=== PATIENT | female | born 1970 | race Caucasian/White ===

== ENCOUNTER 2023-08-13 06:09 | Day surgery (SDC) | payer BC, SELFPAY ==
[2023-08-13 06:25] VITALS: BP 139/96; PULSE 88; RESP 16; TEMP 36.3; O2SAT 96; BMI 35.8
[2023-08-13] MEDS: SODIUM CHLORIDE 0.9 % (FLUSH) 10 ML SYRINGE IVF (06:30)
[2023-08-13] MEDS: LACTATED RINGERS 1000 ML 1,000 ML 100 ML IV (06:30)
[2023-08-13 06:45] LABS: Hemoglobin* 14.2 gm/dL (12.0-16.0)
[2023-08-13 06:48] LABS: Ur HCG Qualitative* Negative (Negative)
--- NOTE | 2023-08-13 07:17 | W.PM.H&PU_ITS ---
History & Physical Update History & Physical Update H&P Reviewed and patient assessed: No changes noted H&P Updates: Reviewed plan for hysteroscopy, D&C and IUD insertion. We discussed risks of surgery including postprocedural discomfort/pain, irregular spotting post-IUD, malposition/IUD expulsion, infection and perforation. We discussed postoperative restrictions and expectations - pelvic rest x2 weeks and no lifting restrictions. Pre-op labs WNL. All questions answered. Written consent re- initialed.
[2023-08-13] MEDS: BUPIVACAINE 0.5% 30 ML INJECTION (07:55)
[2023-08-13 08:27] VITALS: BP 133/87; PULSE 85; RESP 16; TEMP 36.2; O2SAT 93
--- NOTE | 2023-08-13 08:29 | W.ANESCHARGE ---
Anesthesia Charges Start Date/Time Anesthesia Start Date: 08/13/23 Anesthesia Start Time: 07:39 Stop Date/Time Anesthesia Stop Date: 08/13/23 Anesthesia Stop Time: 08:30
[2023-08-13 08:30] VITALS: BP 140/84; PULSE 84; RESP 16; O2SAT 95
--- NOTE | 2023-08-13 08:36 | W.PM.GYNPROC ---
Procedure Note Time Seen by Provider: 08:36 Date of procedure: 08/13/23 Pre-op diagnosis: Abnormal Uterine Bleeding Post-op diagnosis: same Procedure: Hysteroscopy, dilation and curettage, IUD insertion Anesthesia: MAC and local Complications: None Surgeon: Amrit Marti MD Estimated blood loss (mL): 5 IV fluids (mL): 700 Urine Output (mL): 50 Pathology: specimen obtained, sent to pathology Condition: stable Disposition: same day Findings: Proliferative appearing endometrium Polypoid tissue at the right uterine fundus, obscuring visualization of right tubal ostia Unremarkable left tubal ostia Procedure Description: Procedure in detail: Patient was taken to the operating room with IV running. She was positioned in dorsal lithotomy position with her legs fully supported in Yellofin stirrups. Monitored anesthesia care was administered. She was prepped and draped in the usual sterile fashion. Exam under anesthesia was performed for the above-noted findings. In/out catheterization performed, return of 50mL urine. Speculum was inserted. Cervix visualized and grasped along the anterior lip with a single-tooth tenaculum. Paracervical block performed in the usual fashion with a 0.5% Marcaine, 10mLtotal. Cervix was serially dilated to accommodate the TRUCLEAR hysteroscope. This was assembled with saline inflow and outflow in place. The line was flushed of bubbles. The hysteroscope was advanced through the cervix into the endometrial cavity for the above noted findings. The tissue morcellator was then inserted through the operating channel. Window lock was performed. Under direct visualization, the right polypoid-like tissue was first resected in its entirety then endometrial cavity was circumferentially curetted with the tissue morcellator. The hysteroscope and morcellator were then removed from the uterus. Uterus was sounded to 10 cm. Mirena IUD was loaded, advanced to uterine fundus, deployed in usual fashion. Diagnostic hysteroscopy was again performed, confirming proper intrauterine device position. Hysteroscope was removed, making care to avoid altering the position of the IUD. Strings trimmed to 3cm. Tenaculum was removed from the anterior lip of cervix. Hemostasis was noted. Patient tolerated procedure well. She was taken to recovery area in stable condition. Surgical debriefing completed. EBL 5 mL , urine output 50mL, IVF 700mL, Fluid deficit 80mL. Specimen is endometrial curettings, sent for pathologic evaluation.
[2023-08-13 08:45] VITALS: BP 148/74; PULSE 88; RESP 16; O2SAT 95
[2023-08-13 09:00] VITALS: BP 152/93; PULSE 86; RESP 16; O2SAT 95
== END 2023-08-13 09:15 | disposition home or self-care (01) ==
PROVIDERS: PCP Physician Assistant Medical; Visit Provider Obstetrics & Gynecology
PROC: 0UDB8ZZ Extraction of Endometrium, Via Natural or Artificial Opening Endoscopic (ICD-10-PCS; CPT 58558; principal; 2023-08-13 07:15)
DX: N93.8 Other specified abnormal uterine and vaginal bleeding (principal); Z30.430 Encounter for insertion of intrauterine contraceptive device
CPT/HCPCS: 58558; 58300; 00952; 36415; 81025; 85018; 88305; J0665; J1100; J1885; J2250; J2405; J2704; J3010; J7120; J7298

== ENCOUNTER 2023-09-17 20:56 | Emergency (ER) | payer BC, SELFPAY ==
[2023-09-17 21:08] VITALS: BP 138/71; PULSE 69; RESP 24; TEMP 36.2; O2SAT 100
[2023-09-17] MEDS: ONDANSETRON 2 MG/ML inj 4 MG IVP (21:31)
[2023-09-17] MEDS: KETOROLAC 30 MG/ML inj 15 MG IVP (21:32)
--- NOTE | 2023-09-17 22:20 | CT_ITS ---
Patient: AIDEE CEVALLOS Facility:?[facility] Patient ID:?[id number] Site Patient ID:?[id number]. Site :?[id number] Study:?CT-Abdomen/Pelvis WO-09/17/2023 10:32:48 PM Ordering Physician:ADAL Final Report: INDICATION: Flank pain. TECHNIQUE: CT of the abdomen and pelvis without IV contrast. Coronal and sagittal reconstructions. COMPARISON: None. FINDINGS: The liver is enlarged measuring 21 cm in length. Diffuse hepatic steatosis, with focal fatty infiltration adjacent to the falciform ligament. The gallbladder is distended and contains multiple stones. No definite evidence of gallbladder inflammation. No biliary dilation. The unenhanced spleen, pancreas, and adrenal glands are normal in appearance. No hydronephrosis or ureteral dilation. No obstructing urinary calculi identified. Decompressed urinary bladder. IUD in the uterus. There is a 4.8 cm subserosal fibroid arising from the anterior uterus. Lobulated uterine contour suggesting presence of additional fibroids. There is a 3.6 cm cystic lesion in the left adnexa (series 2, image 111). Small nonspecific calcific density along the right lower vaginal wall. No small bowel dilation. Moderate amount of stool throughout the colon. A possible diminutive appendix is identified which is negative. No intraperitoneal free air or fluid. No lymphadenopathy. The lung bases are clear. The bones are unremarkable. IMPRESSION: 1. Distended gallbladder containing multiple stones. No definite CT evidence of gallbladder inflammation. This could be further evaluated with right upper quadrant ultrasound if clinically indicated. 2. Hepatomegaly with diffuse hepatic steatosis. 3. Fibroid uterus and left adnexal cyst. Please note that all CT scans at this facility use dose modulation, iterative reconstruction, and/or weight-based dosing when appropriate to reduce radiation dose to as low as reasonably achievable. Dictated by Lorie Snyder MD @ 09/17/2023 11:02:16 PM Signed by:?Lorie Snyder MD @09/17/2023 11:02:16 PM (Electronic Signature)
[2023-09-17 22:26] LABS: Appearance Urine Clear (Clear); Bilirubin Urine Negative (Negative); Blood Urine Trace-intact (Negative); Color Urine Yellow (Yellow); Glucose Urine Negative (Negative); Ketones Urine 1+ (Negative); Leukocyte Esterase Urine Negative (Negative); Nitrite Urine Negative (Negative); Protein Urine Negative (Negative); Specific Gravity Urine 1.025 (1.000-1.030); Urobilinogen Urine 0.2 (0.2-1.0)
[2023-09-17 22:30] VITALS: TEMP 36.6
[2023-09-17 22:36] LABS: Bacteria Urine Few; RBC Urine 0-2 (0-2); Squamous Epithelial Cell Urine Few (None-Few); WBC Urine 0-2 (0-5)
--- NOTE | 2023-09-17 23:36 | ED.GENADULT ---
HPI - General Adult General Chief complaint: Back Injury/Pain Stated complaint: Sent by triage nurse for poss kidney stones Time Seen by Provider: 09/17/23 22:06 History of Present Illness HPI narrative: This 53-year-old female comes in with back pain across her mid to lower back that sometimes radiates that around into her abdomen in the upper abdomen primarily. These symptoms started yesterday and went away for awhile and then has come back on and off. She has had some nausea and vomiting also. She was sent here by a nurse who thought she might have a kidney stone. The patient states she does not have any history of kidney stone personally or family history also. She arrives with significant pain and an IV was established prior to my seeing her. I did order Toradol and Zofran and this brought great relief to her symptoms. Related Data Home Medications Medication Instructions Recorded Confirmed aspirin 81 mg tablet,delayed 81 mg PO DAILY 06/14/23 09/02/23 release clonidine HCl 0.1 mg tablet 0.1 mg PO BID 06/14/23 09/02/23 fluoxetine 40 mg capsule 40 mg PO DAILY 06/14/23 09/02/23 gabapentin 300 mg capsule 300 mg PO DAILY 06/14/23 09/02/23 zolpidem 10 mg tablet 10 mg PO QPM PRN 07/19/23 09/02/23 albuterol sulfate 90 mcg/actuation 1 inh inhalation Q6H 08/09/23 09/02/23 aerosol inhaler omeprazole 20 mg capsule,delayed 20 mg PO DAILY 08/09/23 09/02/23 release Allergies Allergy/AdvReac Type Severity Reaction Status Date / Time No Known Drug Allergies Allergy Verified 09/02/23 14:28 Review of Systems Status of ROS: Reports: 10 or more systems reviewed and unremarkable except as noted in History and below Narrative: Constitutional: No fevers, no weight gain or loss. Eyes: No discharge. No vision changes. HENT: No congestion, no sore throat, no ear pain. Cardiovascular: No chest pain, no palpitations. Respiratory: No shortness of breath, no wheezes, no cough. Gastrointestinal: No diarrhea. Abdominal and flank pain as described above. Genitourinary: No dysuria, no hematuria. Musculoskeletal: Normal range of motion. Skin: No rashes, no pruritis. Neurological: No dizziness, weakness, sensory change, speech change. Endo/Heme/Allergies: No bruising or bleeding. No polydipsia. Pysch: no suicidality, no anxiety, no insomnia. All other systems reviewed and are negative. [facility] Medical History (Updated 09/17/23 @ 23:47 by Frank Muñiz MD) Adjustment disorder with anxiety ?F43.22 - Adjustment disorder with anxiety (ICD-10) Genital herpes ?A60.00 - Herpesviral infection of urogenital system, unspecified (ICD-10) Dysthymic disorder ?F34.1 - Dysthymic disorder (ICD-10) Surgical History History of endometrial ablation ?Z98.890 - Other specified postprocedural states (ICD-10) Social History Smoking Status: Never smoker Do you use any of these nicotine containing products: None How often do you have a drink containing alcohol: monthly or less Alcohol type: hard liquor How many standard drinks containing alcohol do you have on a typical day: 1 or 2 How often do you have six or more drinks on one occasion: Never AUDIT-C Alcohol total score: 1 Non-prescribed substance use: denies use Caffeine: Yes Are you using contraception or practicing any form of control: No Exam Narrative: Exam Narrative: Constitutional: Well-developed, well-nourished, no acute distress. HEENT: Normocephalic, atraumatic. Neck: Normal range of motion. Nontender. Supple. Heart: Regular. No murmurs. Normal rate. Intact distal pulses. Lungs: Clear to auscultation. No chest discomfort. No wheezes, rhonchi, or rales. Abdomen: Normal bowel sounds. Tenderness in the right upper quadrant. No rebound tenderness. Genitalia: Deferred. Back: No midline tenderness. Normal range of motion. Extremities: Normal range of motion. No injury. Skin: Intact. No rash. Warm. No erythema or pallor. Neurologic: No altered sensation. No weakness. Alert and oriented. Psychiatric: No suicidality. No anxiety or depression. No insomnia. Nursing notes and vitals signs are reviewed. Const: Vital Signs, click to edit/add: Vital Signs - 24 hr 09/17/23 21:08 09/17/23 22:30 Temperature 97.2 F L 97.9 F Pulse Rate [Pulse Oximeter] 69 Respiratory Rate 24 Blood Pressure [Le ft Upper Arm] 138/71 Pulse Oximetry 100 Oxygen Delivery Me thod Room Air Course Vital Signs Vital signs: Initial Vital Signs Temperature 97.2 F L 09/17/23 21:08 Temperature Source Temporal Artery Scan 09/17/23 21:08 Pulse Rate 69 09/17/23 21:08 Respiratory Rate 24 09/17/23 21:08 Blood Pressure 138/71 09/17/23 21:08 Blood Pressure Mean 93 09/17/23 21:08 Blood Pressure Position Sitting 09/17/23 21:08 Pulse Oximetry 100 09/17/23 21:08 Oxygen Delivery Method Room Air 09/17/23 21:08 Vital Signs Temperature 97.2 F L 09/17/23 21:08 Pulse Rate 69 09/17/23 21:08 Respiratory Rate 24 09/17/23 21:08 Blood Pressure 138/71 09/17/23 21:08 Pulse Oximetry 100 09/17/23 21:08 Oxygen Delivery Method Room Air 09/17/23 21:08 Temperature 97.9 F 09/17/23 22:30 Pulse Rate 69 09/17/23 21:08 Respiratory Rate 24 09/17/23 21:08 Blood Pressure 138/71 09/17/23 21:08 Pulse Oximetry 100 09/17/23 21:08 Oxygen Delivery Method Room Air 09/17/23 21:08 Medications Administered Medications: Discontinued Medications Generic Name Dose Route Start Last Admin Trade Name Miguelq PRN Reason Stop Dose Admin Ketorolac Tromethamine 15 mg 09/17/23 21:28 09/17/23 21:32 Ketorolac 30 Mg/Ml Inj IVP 09/17/23 21:29 15 mg ONCE ONE Administration Ondansetron HCl 4 mg 09/17/23 21:28 09/17/23 21:31 Ondansetron 2 Mg/Ml Inj IVP 09/17/23 21:29 4 mg ONCE ONE Administration Medical Decision Making MDM Narrative Medical decision making narrative: This patient comes in with abdominal and back pain as described above. An IV was established where she received Toradol 15 mg and Zofran 4 mg. This brought great relief to her symptoms. A CT scan of the abdomen and pelvis is obtained which shows no sign of renal stone but there are stones distending her gallbladder. This most likely is explaining her intermittent pain. She is not showing any sign of obstruction or infection. She is okay to be discharged home. I did provide prescriptions for Toradol and [place] through the [facility]. I advised her to follow-up with surgery Clinic for cholecystectomy. Lab Data Labs: Lab Results 09/17/23 Range/Units 22:20 Urine Color Yellow (Yellow) Urine Appearance Clear (Clear) Urine pH 6.0 (5.0-8.5) Ur Specific Ramona 1.025 (1.000-1.030) Urine Protein Negative (Negative) Urine Glucose (UA) Negative (Negative) Urine Ketones 1+ A (Negative) Urine Blood Trace-intact A (Negative) Urine Nitrite Negative (Negative) Urine Bilirubin Negative (Negative) Urine Urobilinogen 0.2 (0.2-1.0) Ur Leukocyte Esterase Negative (Negative) Urine RBC 0-2 (0-2) Urine WBC 0-2 (0-5) Ur Squamous Epith Cells Few (None-Few) Urine Bacteria Few A (None) Imaging Data CT scan - abdomen: Radiologist's impression: 1. Distended gallbladder containing multiple stones. No definite CT evidence of gallbladder inflammation. This could be further evaluated with right upper quadrant ultrasound if clinically indicated. 2. Hepatomegaly with diffuse hepatic steatosis. 3. Fibroid uterus and left adnexal cyst. Discharge Plan Discharge Clinical Impression: Cholelithiasis Patient Disposition: Home, Self-Care Condition: Improved Additional Instructions: Take medication as needed and directed. Return if symptoms are worsening or pain is not adequately controlled. Follow up with surgery Clinic for ongoing management of gallstones. Call [phone] for appointment. Prescriptions: No Action clonidine HCl 0.1 mg tablet 0.1 mg PO BID gabapentin 300 mg capsule 300 mg PO DAILY fluoxetine 40 mg capsule 40 mg PO DAILY aspirin 81 mg tablet,delayed release (DR/EC) 81 mg PO DAILY zolpidem 10 mg tablet 10 mg PO QPM PRN omeprazole 20 mg capsule,delayed release(DR/EC) 20 mg PO DAILY albuterol sulfate 90 mcg/actuation HFA aerosol inhaler 1 inh inhalation Q6H Follow Up/Referrals: Heavenly Avery, SHAYNA [Primary Care Provider] - Stand Alone Forms: [employer] Info Instructions
[2023-09-18] VITALS: BP 138/71; PULSE 69; RESP 24; TEMP 36.6
== END 2023-09-18 | disposition home or self-care (01) ==
PROVIDERS: Emergency Provider Emergency Medicine Emergency Medical Services; PCP Physician Assistant Medical
DX: K80.20 Calculus of gallbladder without cholecystitis without obstruction (principal)
CPT/HCPCS: 74176; 81001; 87086; 96374; 96375; 99284; J1885; J2405

== ENCOUNTER 2023-09-19 17:27 | Outpatient (CLI) | payer BC, SELFPAY ==
--- NOTE | 2023-09-19 18:00 | US_ITS ---
Patient: AIDEE CEVALLOS Facility:?[facility] Patient ID:?[id number] Site Patient ID:?[id number] Site :?[id number] Study:?US-Abdomen RUQ-09/19/2023 8:59:20 AM Ordering Physician:LUANA MON Final Report: INDICATION: Abnormal gallbladder on CT TECHNIQUE: Ultrasound abdomen limited. Sonographic images of the right upper quadrant were obtained using tan-scale and color Doppler images. COMPARISON: 09/17/[address] FINDINGS: Liver: Diffusely echogenic consistent with fatty infiltration. 22.2 cm focal fatty sparing near the gallbladder fossa. No masses. No intrahepatic biliary dilatation. Normal flow direction in the portal vein. Gallbladder: Cholelithiasis. Wall thickness upper limits of normal. [employer] indicates tenderness over the gallbladder. Common bile duct: 6 mm. Pancreas: Normal where visible. Right kidney: Normal in size. Normal echotexture and cortex. No suspicious masses, stones, or hydronephrosis. Vasculature: Proximal abdominal aorta and IVC are normal. IMPRESSION: 1. Cholelithiasis and tenderness over the gallbladder. Correlate for cholecystitis. 2. Hepatic steatosis. Dictated by Kash Willis MD @ 09/24/2023 9:16:22 AM Signed by:?Kash Willis MD @09/24/2023 9:16:22 AM (Electronic Signature)
== END 2023-09-19 17:28 | disposition home or self-care (01) ==
LOC: US 17:31
PROVIDERS: PCP Physician Assistant Medical; Visit Provider Surgery
DX: K80.20 Calculus of gallbladder without cholecystitis without obstruction (principal); K76.0 Fatty (change of) liver, not elsewhere classified
CPT/HCPCS: 76705; 80076; 83690

== ENCOUNTER 2023-09-23 10:04 | Day surgery (SDC) | payer BC, SELFPAY ==
[2023-09-23] VITALS (16 sets, daily range): BP systolic 126–145; BP diastolic 69–78; PULSE 78–99; RESP 14–18; TEMP 36.4–37.2; O2SAT 94–100; BMI 34.3
--- OUTSIDE RECORDS SUMMARY | 2023-09-23 10:09 | XMS_ITS | Clinical Summary ---
Author Name Unknown Organization [employer] [facility] Address [place], [place] [address] Care Team Providers Care Pcb Design Engineer Name Role Phone Heavenly Avery Primary Care Provider Allergies No known active allergies Medications Medication Sig Dispensed Refills Start Date End Date Status cholecalciferol (VITAMIN D-3) 2,000 unit capsule Take 1 capsule by mouth once daily. 0 04/05/2015 Active cyanocobalamin (VITAMIN B-12) 1,000 mcg tablet Take 1 tablet by mouth once daily. 0 04/05/2015 Active vitamin e 1,000 unit cap Take by mouth once daily. 0 04/05/2015 Active Omeprazole 20 mg tabletIndications :Gastric reflux Take 1 tablet by mouth 2 times daily. Twice daily before a meal 180 tablet 08/23/2017 Active famciclovir (FAMVIR) 250 mg tabletIndications :Genital herpes simplex, unspecified site Take 1 Tablet (250 mg) by mouth 2 times daily. X 5 days for herpes out break. 30 Tablet 1 08/29/2020 Active mupirocin (BACTROBAN OINTMENT) ointmentIndicatio ns:Skin irritation APPLY TOPICALLY TO THE AFFECTED AREA THREE TIMES DAILY FOR 5 DAYS 22 g 12/22/2020 Active albuterol HFA (ProAir HFA) 90 mcg/actuation inhalerIndication s:Bronchitis with bronchospasm Inhale 1-2 Puffs by mouth every 6 hours if needed for Shortness of Breath 1st choice. 1 Each 03/15/2022 Active aspirin (ECOTRIN) 81 mg enteric coated tabletIndications :Coronary artery disease, unspecified vessel or lesion type, unspecified whether angina present, unspecified whether [place] or transplanted heart TAKE 1 TABLET(81 MG) BY MOUTH EVERY DAY WITH A MEAL 90 Tablet 3 08/10/2022 Active FLUoxetine (PROZAC) 40 mg capsuleIndication s:Dysthymic disorder Take 1 Capsule (40 mg) by mouth every morning. 90 Capsule 3 12/17/2022 Active cloNIDine HCL (CATAPRES) 0.1 mg tabletIndications :Vasomotor symptoms due to menopause Take 1 Tablet (0.1 mg) by mouth two times daily. 180 Tablet 1 06/26/2023 Active zolpidem (AMBIEN) 10 mg tabletIndications :Insomnia, idiopathic Take 1 Tablet (10 mg) by mouth at bedtime if needed for Sleep. 30 Tablet 1 08/06/2023 Active clonazePAM (KLONOPIN) 0.5 mg tabletIndications :Insomnia, idiopathic Take 1-2 Tablets (0.5-1 mg) by mouth at bedtime. 30 Tablet 1 09/06/2023 Active gabapentin (NEURONTIN) 100 mg capsuleIndication s:Insomnia, idiopathic Take 300 mg at bedtime x 3 days, then 200 mg at bedtime x 3 days, then 100 mg at bedtime x 3 days. 18 Capsule 09/13/2023 Active HYDROcodone-aceta minophen (5-325 mg/tablet)Indicat ions:Cholecystiti s, acute Take 1 Tablet by mouth 3 times daily if needed for Pain. Max acetaminophen dose: 4000 mg in 24 hrs. 10 Tablet 09/20/2023 Active gabapentin (NEURONTIN) 100 mg capsuleIndication s:Insomnia, idiopathic TAKE 1 CAPSULE(100 MG) BY MOUTH AT BEDTIME IN ADDITION TO 300 MG CAPSULE FOR TOTAL OF 400 MG AT BEDTIME 90 Capsule 06/07/2023 4 Discontinu ed(*Med complete/R egimen complete/L evel of care change) gabapentin (NEURONTIN) 300 mg capsuleIndication s:Insomnia, idiopathic TAKE 1 CAPSULE(300 MG) BY MOUTH AT BEDTIME 90 Capsule 08/12/2023 4 Discontinu ed(*Med complete/R egimen complete/L evel of care change) Active Problems Problem Noted Date Diagnosed Date Trigger finger, right middle finger 06/06/2021 Carpal tunnel syndrome, bilateral 06/06/2021 Adjustment disorder with mixed anxiety and depre ssed mood 07/05/2016 Genital herpes, unspecified 07/17/2011 Last Assessment & Plan: Diagnosis since age 8 Uses anti viral as needed doing well at this time. Dysthymic disorder 06/27/2010 Encounters Date Type Department Care Team Description 09/20/2023 8:30 AM CDT Preop Visit [facility] [address] [place] [address] Heavenly Avery PA Preoperative Exam (Gallbladder) 09/20/2023 Travel 09/19/2023 Telephone [facility] [address] [place] [address] Heavenly Avery PA Appointment Request 09/17/2023 Nurse Triage [facility] [address] [place] [address] Heavenly Avery PA Flank Pain 09/12/[address] [address] Heavenly Avery PA Medication Management (gabapentin) 09/09/[address] [address] Heavenly Avery PA Refill Request (Gabapentin) 09/06/2023 Telephone [facility] [address] [place] [address] Heavenly Avery PA Refill Request (Klonopin ) 08/13/2023 Orders Only [facility] Scanner 1 scan: (1-Ord) [facility], HYSTEROSCOPY, DILATION AND CURETTAGE, IUD INSERTION, 08/13/2023 08/13/2023 Lab Requisition [facility] [phone] Shaneka Marti MD 08/11/2023 Refill [facility] [address] [place] [address] Heavenly Avery PA Refill Request (Gabapentin) 08/06/2023 9:30 AM CDT Preop Visit [facility] [address] [place] [address] Heavenly Avery PA Preoperative Exam (Uterus ) 08/06/2023 Travel 06/25/2023 Refill [facility] [address] [place] [address] Heavenly Avery PA Refill Request (Clonidine Hcl) from Last 3 Months Immunizations Name Administration Dates Next Due COVID-19 vaccine (SongtradrBioNTSomaLogic 30mcg/0.3mL) P F, MDV 09/21/2020,08/31/2020 Td (Age >=7 Years) 12/17/2022 Tdap 02/11/2012 Family History Medical History Relation Name Comments Good Health Brother Heart Disease Father Cancer Maternal Grandmother Pancrea tic Hyperlipidemia Mother Good Health Sister Cancer-breast No Family History Cancer-ovarian No Family History Relation Name Status Comments Brother Alive Father Maternal Grandmother Mother Alive Sister Alive Social History Tobacco Use Types Packs/Day Years Used Date Smoking Tobacco: Never Smokeless Tobacco: Never Tobacco Cessation:Counseling Given: Yes Alcohol Use Standard Drinks/Week Comments No 0 (1 standard drink = 0.6 oz pur e alcohol) PHQ-2 Answer Date Recorded PHQ-2 TOTAL SCORE 0 11/15/2022 Social Connections Answer Date Recorded Frequency of Communication with Friends and Fami ly 0 12/17/2022 Financial Resource Strain Answer Date R ecorded Difficulty of Paying Living Expenses 3 12/17/2022 Difficulty of Paying Living Expenses Not on file 12/17/2022 Food Insecurity Answer Date Recorded Worried About Running Out of Food in the Last Ye ar 1 12/17/2022 Transportation Needs Answer Date Record ed Lack of Transportation (Medical) 1 12/17/2022 Housing Stability Answer Date Recorded Unable to Pay for Housing in the Last Year 1 12/17/2022 Sex and Gender Information Value Date Recorded Sex Assigned at Not on file Gender Identity Not on file Sexual Orientation Not on file Obstetrics History Para Term AB IAB SAB Ectopic Multiple Livin g Live Births 1 Date Outcome GA Total Labor Labor/2nd/3rd Weight Sex Delivery Anes PTL Codi A1 A5 Name Cl in Last Filed Vital Signs Vital Sign Reading Time Taken Comments Blood Pressure 107/69 09/20/2023 8:34 AM CDT Pulse 84 09/20/2023 8:34 AM CDT Temperature 36.3 ??C (97.4 ??F) 12/31/2022 1:11 PM CD T Respiratory Rate 16 02/23/2022 12:46 PM CDT Oxygen Saturation 99% 09/20/2023 8:34 AM CDT Inhaled Oxygen Concentration - - Weight 88 kg (194 lb) 09/20/2023 8:34 AM CDT Height 159.7 cm (5' 2.87) 08/06/2023 9:43 AM CD T Body Mass Index 34.5 08/06/2023 9:43 AM CDT Plan of Treatment Health Maintenance Due Date Last Done Comments HIV for age 15-65 1983 Zoster (shingles) series for age 50+ (1 of 2) 2018 COVID-19 vaccine series (2022- season) 2023 09/21/2020, 08/31/2020 Depression screening for age 12+ 11/16/2023 11/15/2022, 06/19/2021, 03/08/2021, Additional history exists Mammogram for age 45-75 12/18/2023 12/18/19 23, 12/05/2021, 11/15/2020, Additional history exists Fecal testing non-DNA (FIT,FOBT,iFOBT) for age 45-75 12/19/2023 12/18/2022, 03/13/2021, 01/15/2020 Influenza for age 50-64 01/12/2024 BMI (ht and wt on same day) for age 18+ 08/05/2024 08/06/2023, 12/17/2022, 03/05/2022, Additional history exists Pap test for age 21-65 11/15/2025 , 11/15/2020, 10/15/2017, Additional history exists Lipids for age 45-75 05/15/2028 05/15/2023, 12/17/2022, 05/29/2022, Additional history exists Tetanus booster 12/17/2032 12/17/2022, 02/11/2012 Tdap Completed 02/11/2012 Hepatitis C screening for age 18-79 Completed 12/05/2021 Pneumococcal series for age 6-64 Aged Out No longer eligible based on patient's age to complete this topic Procedures Procedure Name Priority Date/Time Associated Diagnosis Comments LAB TRACKING EVENT Routine 08/13/2023 8: 15 AM CDT PATH TISSUE EXAM Routine 08/13/2023 8:15 AM CDT SCAN-OPERATIVE/PRO CEDURE REPORT 08/13/2023 12:00 AM CDT LIPID PANEL W REFLEX MEASURED LDL Routine 05/15/2023 8:06 AM COMPUTATIONAL LINGUIST Coronary artery disease, unspecified vessel or lesion type, unspecified whether angina present, unspecified whether [place] or transplanted heart OCCULT BLOOD IFOBT STOOL Routine 12/18/2022 10:48 AM CDT Screening for colon cancer XR MAMMO BRITTNEY BILAT SCREEN Routine 12/17/2022 9:45 AM CDT Visit for screening mammogram ANTI HCV Routine 12/05/2021 9:30 AM CDT Need for hepatitis C screening test FIRE FIGHTERS DISPATCHER THIN PREP PAP SCREEN IMAGED Routine 11/15/2020 10:03 AM CDT Screening for cervical cancer from Last 3 Months or Most Recently Relevant to Health Maintenance Results * LAB TRACKING EVENT (08/13/2023 8:15 AM CDT) Other (Other) Client Collect / Unknown 08/13/2023 8:15 AM CDT 08/13/2023 1:58 PM CDT Shaneka Marti MD LAB BILL ONLY [facility] [address] [place] [address], * PATH TISSUE EXAM (08/13/2023 8:15 AM CDT) Case Report Pathology Report ?Case: [id number] ? Authorizing Provider: ??Shaneka Marti MD ??Collected: ? 08/13/2023 0815 ? Ordering Location: ? [facility] ?Received: ?08/13/2023 1418 ? Pathologist: ? Aren Tesfaye MD ? Specimen: ?Endometrial Curettings ? 08/14/2023 2:00 PM CDT [id number]AL LABORATORY Final Diagnosis A) ENDOMETRIUM, CURETTAGE: 1. Weakly proliferative endometrium 2. Negative for chronic endometritis 3. Negative for hyperplasia, atypia, and malignancy 08/14/2023 2:00 PM T [facility] Clinical Information Abnormal uterine bleeding, history endometrial ablation 08/14/2023 2:00 PM T [facility] [employer] [facility] Gross Description A) Received in formalin, labeled with the patient's name and endometrial curettings, is a 2.4 x 0.8 x 0.1 cm aggregate of morcellated griffith-pink mucosa. ??The specimen is entirely submitted in 1 cassette. EKW 08/13/2023 08/14/2023 2:00 PM CDT [facility] LABORATORY-C ENTRAL LABORATORY Microscopic Description The final diagnosis is based on microscopic examination of appropriate sections of all specimens. 08/14/2023 2:00 PM CDT [facility] [employer] LABORATORY-C ENTRAL LABORATORY Additional Information Interpreted at [facility] - [address] [facility] [address], [place] [address] 08/14/2023 2:00 PM CDT [facility] Other (Endometrial Curettings) 08/13/2023 8:15 AM CDT 08/13/2023 2:18 PM CDT Shaneka Marti MD PATHOLOGY/[facility] [address] [place] [address], * SCAN-OPERATIVE/PROCEDURE REPORT (08/13/2023 12:00 AM CDT) Scanner OTHER * (ABNORMAL) LIPID PANEL W REFLEX MEASURED LDL (05/15/2023 8:06 AM COMPUTATIONAL LINGUIST) CHOLESTEROL,TOTAL 211(H) 100 - 199 mg/dL 05/15/2023 1:36 PM COMPUTATIONAL LINGUIST [facility] [employer] [facility] Comment: Cholesterol, Total Reference Ranges Desirable <200 mg/dL Borderline 200-239 mg/dL High >=240 mg/dL TRIGLYCERIDES 238(H) <150 mg/dL 05/15/2023 1:36 PM COMPUTATIONAL LINGUIST [facility] [employer] [facility] HDL CHOLESTEROL 48 >40 mg/dL 1:36 PM COMPUTATIONAL LINGUIST [facility] NON-HDL CHOLESTEROL 163(H) <145 mg/dl 05/15/2023 1:36 PM COMPUTATIONAL LINGUIST [facility] CHOL/HDL RATIO 4.40 <4.50 05/15/2023 1:36 PM COMPUTATIONAL LINGUIST [facility] LDL CHOLESTEROL 115 <=130 mg/dL 05/15/2023 1:36 PM COMPUTATIONAL LINGUIST [facility] VLDL CHOLESTEROL 48(H) <=30 mg/dL 05/15/2023 1:36 PM COMPUTATIONAL LINGUIST [facility] [employer] [facility] PROVIDER ORDERED STATUS RANDOM 05/15/2023 1:36 PM COMPUTATIONAL LINGUIST [facility] Blood BLOOD SPECIMEN / Unknown Venipuncture / Unknown 05/15/2023 8:06 AM COMPUTATIONAL LINGUIST 05/15/2023 8:07 AM COMPUTATIONAL LINGUIST Heavenly VALDES CHEMISTRY [facility] [address] [place] [address], * OCCULT BLOOD IFOBT STOOL (12/18/2022 10:48 AM CDT) STOOL BLOOD ,IFOBT Negative Negative 12/24/2022 11:04 AM CDT [facility] Stool STOOL SPECIMEN / Unknown Non-Blood / Unknown 12/18/2022 10:48 AM CDT 12/24/2022 10:49 AM CDT Heavenly VALDES [facility] Performing Organization Address City/[facility] Co de Phone Number [facility] [address] [place] [address], * XR MAMMO BRITTNEY BILAT SCREEN (12/17/2022 9:45 AM CDT) Anatomical Region Laterality Modality BREASTS, Breast Left, Breast Right Bilateral Mammography Impressions 12/17/2022 3:15 PM CDT ??There is no radiographic evidence for malignancy. ??Recommend annual mammograms. MAMMOGRAM ASSESSMENT: ??ACR 1 Negative PATIENTS: You will also receive a letter with your examination results in an easy to read format. ??If you have questions about your results, please contact your referring provider. Narrative 12/17/2022 3:15 PM CDT For Patients: As a result of the 21st Century Cures Act, medical imaging exams and procedure reports are released immediately into your electronic medical record. You may view this report before your referring provider. If you have questions, please contact your health care provider. XR MAMMO BRITTNEY BILAT SCREEN [[id number]] CLINICAL HISTORY: ??This is an asymptomatic 52 y.o. patient. INDICATION FOR EXAM: Mammogram Screening. TECHNIQUE: CC & MLO views were obtained. ??This study was evaluated with the assistance of Computer-Aided Detection. Breast Tomosynthesis was used in interpretation. COMPARISON FILM: Yes 12/05/21 [facility] 11/15/20 [facility] FINDINGS: ??The breasts are heterogeneously dense, which may obscure small masses. There are no dominant masses, suspicious micro calcifications or areas of architectural distortion. Heavenly VALDES MAMMO * ANTI HCV (12/05/2021 9:30 AM CDT) Pathologist [facility] HEPATITIS C ANTIBODY Non-React bert Non-React bert 12/05/2021 5:47 PM CDT [facility] Comment:Antibodies to HCV no t detected; does not exclude the possibility of exposure to HCV. Blood BLOOD SPECIMEN / Unknown Venipuncture / Unknown 12/05/2021 9:30 AM CDT 12/05/2021 9:34 AM CDT Heavenly VALDES SEND OUTS [facility] [address] [place] [id number], * FIRE FIGHTERS DISPATCHER THIN PREP PAP SCREEN IMAGED (11/15/2020 10:03 AM CDT) Pathologist [facility] Case Report Gynecologic Cytology Report ? Case: [id number] ? Authorizing Provider: ??Heavenly Avery PA Collected: ? 11/15/2020 1003 ? Ordering Location: ? [facility] ?? Received: ?11/15/2020 1032 ? Clinic ? First Screen: ?Baccam, Minie ? Pathologist: ? Kirstie Frazier ? MD [place] ? Specimen: ?FIRE FIGHTERS DISPATCHER ThinPrep Vial Screening, Cervical ? 11/25/2020 5:45 PM CDT [facility] INTERPRETATION/ RESULT NEGATIVE FOR INTRAEPITHELIAL LESION OR MALIGNANCY (NIL) (none) 11/25/2020 5:45 PM CDT [facility] EN[facility]AL LABORAT[facility] R NON-NEOPLASTIC FINDING(S) Reactive cellular changes associated with inflammation/repa ir 11/25/2020 5:45 PM CDT [facility] [employer] [facility] EN[facility] SPECIMEN ADEQUACY Satisfactory for evaluation Endocervical component present 11/25/2020 5:45 PM CDT [facility] HPV REQUEST HPV and PAP 11/25/2020 5:45 PM CDT [facility] Date of LMP unsure 11/25/2020 5:45 PM CDT [facility] Last Pap Date 10/15/17 11/25/2020 5:45 PM CDT [facility] Last Pap Result NIL 5:45 PM CDT [facility] Abnormal Pap or [place] Bx in last 5 years No 11/25/2020 5:45 PM CDT [facility] Menstrual Status Perimenopausal 11/25/2020 5:45 PM CDT [facility] [place] Bx Done Today No 11/25/2020 5:45 PM CDT [facility] Additional Information None given 11/25/2020 5:45 PM CDT [facility] Comment: Cytology is screened at [facility] - [address], [place] [address] and [facility] - [address] [facility] [address] and [facility] - [address] [place] [address] Interpreted at [facility] - [address], [place] [address] Automated Review Successful 11/25/2020 5:45 PM CDT [facility] Comment:Specimen processed s uccessfully by automated manager of environmental services device, ThinPrep Imaging System, [employer] ANCILLARY TESTING FIRE FIGHTERS DISPATCHER HPV Ordered, Please see separate report 11/25/2020 5:45 PM CDT [facility] Note The pap test is a screening technique, not a diagnostic procedure. It is used primarily to screen for squamous cancers and precursor lesions. Published studies have shown that it is subject to both false negative and false positive results. The pap test should not be used as the sole means to diagnose or exclude pre-malignant and malignant lesions. 11/25/2020 5:45 PM CDT [facility]-C ENTRAL LABORATORY Other (Cervical) Non-Blood / Unknown 11/15/2020 10:03 AM CDT 11/15/2020 10:32 AM CDT Heavenly VALDES PATHOLOGY/CYTOL OGY [facility]AL LABORATORY [address] [place] [address], [place] from Last 3 Months or Most Recently Relevant to Health Maintenance Care Teams Pcb Design Engineer Relationship Specialty Start Date End Date Heavenly Avery PA [address] [place] [place] [address] PCP - General Family Practice 06/05/16
[2023-09-23] MEDS: LACTATED RINGERS 1000 ML 1,000 ML 100 ML IV ×2 (10:30→15:47)
[2023-09-23] MEDS: SODIUM CHLORIDE 0.9 % (FLUSH) 10 ML SYRINGE IVF (10:30)
[2023-09-23] MEDS: BUPIVACAINE 0.25% 30 ML INJECTION (12:25)
--- NOTE | 2023-09-23 12:38 | P.GSOP_ITS ---
Operative Note Date of procedure: 09/23/23 Pre-op diagnosis: Acute cholecystitis Post-op diagnosis: Same Type of Procedure: Laparoscopic cholecystectomy Indications: The patient is a 53-year-old female who presented to the emergency department earlier in the week with abdominal pain. CT scan showed gallstones. She was referred to surgery Clinic. She had persistent symptoms and therefore labs and ultrasound were obtained. Labs were within normal limits but ultrasound showed cholecystitis. I recommended cholecystectomy the patient agreed to proceed Procedure Description: After discussing the risks and benefits of the procedure, the patient signed informed consent.? The operative site was marked and the patient was brought to the operating room and placed on the operating table in supine position.? Care was taken to pad the patient's pressure points.?? The patient was then Intubated by anesthesia.?? The operative site was then prepped and draped in the usual sterile fashion.? A time-out was then performed. Entrance to the abdomen was gained via a 5 mm Visiport in the left upper quadrant. The abdomen was insufflated and briefly surveyed for signs of injury. There was none. A 10 mm epigastric port was placed as well as 2 working ports along the right costal margin, all under direct vision. The patient was then placed in reverse Trendelenburg position with the right side up. The gallbladder fundus was grasped and retracted cephalad. The gallbladder was noted to be mildly edematous. The infundibulum was grasped. A combination of hook cautery and blunt dissection was used to carefully dissect out the cystic duct and artery until they could clearly be seen entering the gallbladder without any intervening structures. The gallbladder was dissected off the cystic plate to achieve the critical view. the gallbladder was inflamed and therefore small vessels extending along the edge of the gallbladder from the liver easily. These were controlled with clips. Once this was achieved, the cystic duct and artery were each clipped with 2 clips proximally and 1 clip distally and transected with the scissors. The gallbladder was then taken off of the liver bed. The gallbladder was removed from the abdomen using an Endo-Catch bag. The gallbladder bed was surveyed for hemostasis which appeared excellent. A small amount of bile and small gallstone which had spilled were removed and suctioned from the abdomen. The ports were then removed and the abdomen de sufflated. The fascia for the port above the umbilicus was closed with 0 Vicryl. The skin was closed with absorbable subcuticular suture. Sterile dressings were then applied. Instrument sponge and needle counts were correct at the end of the case. The patient was then woken and transferred to the PACU in stable condition. The patient tolerated the procedure well. Findings: Acute cholecystitis with cholelithiasis Anesthesia: SAV Surgeon: Alpa Patterson MD Estimated blood loss (mL): 50 Specimen: Gallbladder Condition: stable Disposition: PACU
--- NOTE | 2023-09-23 12:42 | W.ANESCHARGE ---
Anesthesia Charges Start Date/Time Anesthesia Start Date: 09/23/23 Anesthesia Start Time: 10:49 Stop Date/Time Anesthesia Stop Date: 09/23/23 Anesthesia Stop Time: 12:45
[2023-09-23] MEDS: fentaNYL 100 MCG/2 ML inj 50 MCG IVP ×2 (13:01→13:11)
[2023-09-23] MEDS: KETOROLAC 15 MG/ML inj IVP (13:45)
[2023-09-23] MEDS: HYDROCODONE-ACETAMIN 5-325 MG 1 TAB PO ×2 (14:22→15:46)
[2023-09-23] MEDS: METOCLOPRAMIDE HCL 5 MG/ML INJ 10 MG IVP (15:25)
--- NOTE | 2023-09-23 15:25 | SUR.PHASEII ---
Pt ambulated to bathroom with SBA, tolerated movement without difficulty. Upon arriving back to room, pt states she is feeling nauseated and wanted to lie back on bed. Tolerated crackers and water. Pt states her pain is 7/10.
--- NOTE | 2023-09-24 06:42 | W.ANESCHARGE ---
Anesthesia Charges Start Date/Time Anesthesia Start Date: 09/23/23 Anesthesia Start Time: 10:49 Stop Date/Time Anesthesia Stop Date: 09/23/23 Anesthesia Stop Time: 12:45
--- NOTE | 2023-09-25 13:07 | W.ANESCHARGE ---
Anesthesia Charges Start Date/Time Anesthesia Start Date: 09/23/23 Anesthesia Start Time: 10:49 Stop Date/Time Anesthesia Stop Date: 09/23/23 Anesthesia Stop Time: 12:45
== END 2023-09-23 15:52 | disposition home or self-care (01) ==
PROVIDERS: PCP Physician Assistant Medical; Visit Provider Surgery
PROC: 0FT44ZZ Resection of Gallbladder, Percutaneous Endoscopic Approach (ICD-10-PCS; CPT 47562; principal; 2023-09-23 11:15)
DX: K80.00 Calculus of gallbladder with acute cholecystitis without obstruction (principal)
CPT/HCPCS: 47562; 00790; 88304; A9270; J0330; J0665; J1100; J1170; J1885; J2250; J2405; J2704; J2710; J2765; J3010; J7120

== ENCOUNTER 2023-10-08 09:37 | Outpatient (CLI) | payer BC, SELFPAY | END 2023-10-08 09:38 | disposition home or self-care (01) | LOC: NFLDREF 09:39 | PROVIDERS: PCP Physician Assistant Medical; Visit Provider Surgery | DX: G89.18 Other acute postprocedural pain (principal); Z90.49 Acquired absence of other specified parts of digestive tract | CPT/HCPCS: 80076 ==